=== PATIENT | male | born 1990 | race Caucasian/White ===

== ENCOUNTER 2017-06-11 18:37 | Emergency (ER) | payer OTHER ==
[~2017-06-11] VITALS: Ht 185.4 cm; Wt 90.7 kg
[2017-06-11 20:53] VITALS: BP 134/66
== END 2017-06-11 20:54 | disposition home or self-care (01) ==
LOC: EDBD 18:37 → ER 18:37
DX: S61.011A Laceration without foreign body of right thumb without damage to nail, initial encounter (principal); W26.8XXA Contact with other sharp object(s), not elsewhere classified, initial encounter; Y93.89 Activity, other specified; Y92.512 Supermarket, store or market as the place of occurrence of the external cause; Y99.0 Civilian activity done for income or pay

== ENCOUNTER 2019-04-20 13:08 | Emergency (ER) | payer OTHER ==
[~2019-04-20] VITALS: Ht 185.4 cm; Wt 78.0 kg
[2019-04-20 13:33] LABS: URINE BILIRUBIN NEGATIVE (Negative); URINE BLOOD NEGATIVE (Negative); URINE CLARITY CLEAR; URINE COLOR YELLOW; URINE GLUCOSE-RANDOM* NEGATIVE (Negative); URINE KETONES NEGATIVE (Negative); URINE LEUKOCYTES-REFLEX NEGATIVE (Negative); URINE NITRITE-REFLEX NEGATIVE (Negative); URINE PROTEIN (DIPSTICK) NEGATIVE (Negative); URINE UROBILINOGEN 0.2 E.U./dl (0.2-1.0)
[2019-04-20] MEDS ORDERED: MAGOX 400400 MG PO (13:42)
[2019-04-20] MEDS ORDERED: GABA PO (13:43)
[2019-04-20 13:51] LABS: HEMATOCRIT 48.2 % (42.0-52.0); HEMOGLOBIN 16.4 gm/dL (14.0-18.0); MCH 28.8 pg (26.0-34.0); MCV 84.9 fL (80.0-100.0); RBC 5.68 mil/uL (4.50-6.00); RDW 13.4 % (10.5-14.5); WBC 6.5 thou/uL (4.0-11.0)
[2019-04-20 14:02] LABS: CALCIUM 9.3 mg/dL (8.5-10.1); POTASSIUM 4.2 mmol/L (3.5-5.1)
[2019-04-20 14:30] VITALS: BP 135/77
--- NOTE | 2019-04-20 23:33 | EKG ---
[place] [address] [facility] [employer] [address] ELECTROCARDIOGRAM REPORT Name: ROXY COREY Room #: DEP Julissa#: [id number] ������������������ Admission: 04/20/19 ������������������ Attend Phys: Discharge: 04/20/19 ������������������ Date of : 89 Report #: [id number] ����������������������������������������������������������������� [id number] THIS REPORT FOR: //name// [facility] ED Test Date: 2019-04-20 Test Time: 13:53:16 Pat Name: ROXY COREY Department: Room: Gender: M Specialist Wound Care: Tyrell MAXWELL RN : 1990 Requested By: Dedra Greene Order Number: [id number] MD: Ricky Jenkins Measurements Intervals [place] Rate: 87 P: 75 NC: 148 QRS: 52 QRSD: 110 T: 34 QT: 350 QTc: 421 Interpretive Statements Sinus arrhythmia Borderline T wave abnormalities No previous ECG available for comparison Electronically Signed On 04-20-2019 23:33:19 CDT by Ricky Jenkins [email or web address] ��������������������������������������������� <ELECTRONICALLY SIGNED> ���������������������������������������� By: Ricky Jenkins MD ��������������������������������������������� 04/20/19 [id number] Ricky Jenkins MD /JOSE DE JESUS
== END 2019-04-20 14:30 | disposition home or self-care (01) ==
LOC: ER 13:08
PROVIDERS: Emergency Medicine
DX: F32.9 Major depressive disorder, single episode, unspecified (principal)